=== PATIENT | female | born 1980 | race Caucasian/White ===

== ENCOUNTER 2017-06-30 11:14 | Emergency (ER) | payer OTHER ==
[2017-06-30 11:20] VITALS: TEMP 97.9
[2017-06-30] MEDS ORDERED: KETOROLAC 30 MG/1 ML SDV IM ONE (12:05)
--- NOTE | 2017-06-30 12:10 | EDPHY ---
General Narrative: CHIEF COMPLAINT: Neck pain with injury HISTORY OF PRESENT ILLNESS: Patient complains of left-sided trapezius and upper back pain. This started several days ago. She injured it while swinging on a playground set. Since then she has had recurring injuries from repetitive use motion. She has had moderate to severe pain in the left side of the trapezius and upper back. No midline tenderness. No right-sided neck pain. No headache. No fever. No cough, body aches, congestion is. No upper extremity or lower extremity sensory changes. Completely reproducible with palpation and movement. So severe it is hard for her to move her sleep. She tried Percocet from previous prescription with no improvement. No other associated complaints or modifying factors. REVIEW OF SYSTEMS: Ten systems reviewed and are negative unless otherwise noted in the HPI PCP: None currently SPECIALISTS: None PAST MEDICAL HISTORY: None SOCIAL HISTORY: Nonsmoker. Works at [employer] for [employer] FAMILY HISTORY: Noncontributory EXAMINATION General Appearance: Alert, no distress Head: normocephalic, atraumatic Eyes: Pupils equal and round, no conjunctival pallor or injection ENT, Mouth: Mucous membranes moist. Airway patent. Neck: Normal inspection, supple on the right side. There is point tenderness of the left trapezius and longitudinal muscles. No midline tenderness of the spine. No crepitus, step-off or deformity. Respiratory: No retractions or distress Cardiovascular: Regular rate. Pulses are symmetric in the radial 2+. Back: No bony tenderness. There is tenderness of the left rhomboids and longitudinal muscle. Tenderness of the left subscapularis. No midline tenderness at any level. Neurological: A&O, nonfocal, normal gait. Strength is symmetric in all 4 limbs. Skin: Warm and dry, no rash. No petechiae or purpura. Extremities: Nontender, no pedal edema Psychiatric: Mood and affect normal DIFFERENTIAL DIAGNOSES: Including but not limited to muscular strain, muscular spasm, whiplash MDM: 12:05 p.m. Acute strain and/or muscular spasm of the trapezius muscle. This is completely reproducible on examination. No midline tenderness. No meningismus. No cough or congestion. No headache. No fever. Vital signs are within normal limits. She has had no success with anti-inflammatories at home. I will add short course of pain medication and muscle relaxant. I have ordered a soft C-collar comfort only. She has instructions to return here at the emergency department if her symptoms worsen, midline neck pain, fever, neck stiffness. She has the on-call primary care physician information to contact for follow-up palpation. She is comfortable this plan and discharged in stable condition. 12:20 p.m. After discussing with the patient again, the Percocet did not help with 1st time. Thus we will change this from Percocet and Flexeril to Valium instead. Valium without any narcotics. We discussed not combine with narcotics as well. Same precautions and follow-up plan as above. - History Smoking Status: Never smoked - Objective Vital Signs: Initial Vital Signs Temperature (C) 97.9 F 06/30/17 11:16 Heart Rate 76 06/30/17 11:16 Respiratory Rate 16 06/30/17 11:16 Blood Pressure 108/74 06/30/17 11:16 O2 Sat (%) 96 06/30/17 11:16 O2 Delivery Mode Room Air Allergies/Adverse Reactions: Penicillins Allergy (Intermediate, Verified 06/30/17 11:21) "fever" throat feels tight latex Allergy (Mild, Verified 06/30/17 11:21) rash at site Home Medications: Medication Instructions Recorded Diazepam [Valium 5 MG (*)] 5 mg PO TID PRN #15 tab 06/30/17 Medications Given: Discontinued Medications Ketorolac Tromethamine (Toradol) 30 mg IM EDNOW ONE Stop: 06/30/17 12:06 Last Admin: 06/30/17 12:13 Dose: 30 mg Departure - Departure Disposition: Home, Routine, Self-Care Clinical Impression: Trapezius muscle spasm Thoracic myofascial strain Qualifiers: Encounter type: initial encounter Qualified Code(s): S29.019A - Strain of muscle and tendon of unspecified wall of thorax, initial encounter Condition: Good Instructions: Cervical Strain (ED), Muscle Strain (ED) Additional Instructions: 1. Ibuprofen 600 mg every 8 hours as needed for 7 days 2. Flexeril as prescribed as needed 3. Soft cervical collar for comfort I your discretion 4. On-call primary care physician information provided. Contact them on Saturday to establish. 4. ED precautions as discussed Referrals: NONE *PRIMARY CARE P,. [Primary Care Provider] - As per Instructions Raom Neves MD [[facility] Primary Care Provider] - As per Instructions Prescriptions: Diazepam [Valium 5 MG (*)] 5 mg PO TID PRN #15 tab PRN Reason: Spasms
[2017-06-30 12:26] VITALS: BP 120/79; PULSE 64; RESP 18; O2SAT 99
== END 2017-06-30 12:26 | disposition home or self-care (01) ==
DX: S29.012A Strain of muscle and tendon of back wall of thorax, initial encounter (principal); M62.830 Muscle spasm of back; Z91.040 Latex allergy status; X50.3XXA Overexertion from repetitive movements, initial encounter; Y92.89 Other specified places as the place of occurrence of the external cause; Y93.89 Activity, other specified
CPT/HCPCS: J1885

== ENCOUNTER 2017-07-01 15:20 | Emergency (ER) | payer OTHER ==
[2017-07-01 15:32] VITALS: RESP 16
--- NOTE | 2017-07-01 16:24 | EDPHY ---
H & P Stated Complaint: Still having muscle spasm in neck/trapezieus;seen here yesterday Time Seen by Provider: 07/01/17 16:01 HPI/ROS: CHIEF COMPLAINT: continued left upper back pain HISTORY OF PRESENT ILLNESS: 37-year-old female complaining of left-sided trapezius pain which started several days ago which initially started when she was swinging on a playground zip line like device. No direct trauma or injury. She was seen emergency department yesterday given Toradol and prescribed diazepam which made her sleepy but did not provide significant pain relief. At no point has she experience peripheral paresthesia, upper extremity weakness. No history of major or minor head or neck injury or manipulation. No chiropractic manipulation. No dizziness. No visual disturbance. No headache. No hearing loss no tinnitus. PRIMARY CARE PROVIDER: none REVIEW OF SYSTEMS: A ten point review of systems was performed and is negative with the exception of the items mentioned in the HPI PAST MEDICAL & SURGICAL HISTORY: No pertinent medical or surgical history SOCIAL HISTORY: nonsmoker. No drug use. . [id number] 3-year-old children PHYSICAL EXAM (Prior to examination, patient consented to physical exam, hands were washed and my usual and customary physical exam procedures followed) 1) GENERAL: Well-developed, well-nourished, alert and oriented. Keeping her head still, has pain to the left trapezius with range of motion of the head 2) HEAD: Normocephalic, atraumatic 3) HEENT: Pupils equal, round, reactive to light bilaterally. Sclera anicteric. Negative Lukas's Nasopharynx, oropharynx, clear, no lesions. Ears bilaterally with normal tympanic membranes. 4) NECK: Full range of motion, no meningeal signs. Tender to palpation left trapezius muscle. No crepitus. No midline C-spine pain, no step-off, no crepitus. 5) LUNGS: Clear auscultation bilaterally, no wheezes, no rhonchi, no retractions. 6) HEART: Regular rate and rhythm, no murmur, no heave, no gallop. 7) ABDOMEN: No guarding, no rebound, no focal tenderness, negative McBurney's, negative Chatman's, negative Rovsing's, negative peritoneal sign, 8) MUSCULOSKELETAL: Moving all extremities, no focal areas of tenderness, no obvious trauma. No peripheral edema or discoloration. 9) BACK: No CVA tenderness, no midline vertebral tenderness, no fluctuance, no step-off, no obvious trauma, no visual or palpable abnormality. 10) SKIN: No rash, no petechiae. 11) NEURO: Awake, alert, and oriented to person, place and time. Answers questions appropriately. There were no obvious focal neurologic abnormalities. No cerebellar dysfunction. Cranial nerves 2 through to 12 intact. Normal steady gait. Upper and lower extremities bilaterally with strength 5 / 5, reflexes 2+.. DIFFERENTIAL DIAGNOSIS: In no particular order my differential includes but is not limited to deep space infection, cervico-cranial vessel disssection, muscle strain. - Personal History LMP (Females 10-55): 8-14 Days Ago Current Tetanus Diphtheria and Acellular Pertussis (TDAP): Yes - Medical/Surgical History Other PMH: muscle spasms in neck - Social History Smoking Status: Never smoked Constitutional: Initial Vital Signs Temperature (C) 36.5 C 07/01/17 15:29 Heart Rate 90 07/01/17 15:29 Respiratory Rate 16 07/01/17 15:29 Blood Pressure 109/78 07/01/17 15:29 O2 Sat (%) 97 07/01/17 15:29 O2 Delivery Mode Room Air Allergies/Adverse Reactions: Penicillins Allergy (Intermediate, Verified 07/01/17 15:28) "fever" throat feels tight latex Allergy (Mild, Verified 07/01/17 15:28) rash at site Home Medications: Medication Instructions Recorded Diazepam [Valium 5 MG (*)] 5 mg PO TID PRN #15 tab 06/30/17 Cyclobenzaprine [Flexeril 10 MG 10 mg PO TID #15 tab 07/01/17 (RX)] Ibuprofen [Motrin (*)] 600 mg PO 07/01/17 Lidocaine 5% [Lidoderm 5% Patch 1 ea TD BID #30 patch 07/01/17 (*)] ED Images - Female Images Female Torso Head Front/Back: 1 - Tender to palpation, reproducible pain with range of motion Medical Decision Making ED Course/Re-evaluation: I think that the patient's symptoms are more than likely secondary to muscular strain. We discussed diagnostic studies. I do not think that diagnostic studies are indicated at this time. Doubt pneumothorax. Doubt PE. We discussed the indications risks benefits of trigger point injection however I do not think the benefits outweigh the risks namely possibility of pneumothorax. I think that cervico-cranial vessel dissection less than likely in this patient at this time. I do not think that imaging studies definitively indicated at this time. I discussed this with the patient and she is in agreement and feels comfortable with this treatment plan. My usual and customary cervical precautions and instructions have been provided including avoiding manipulation of the area. - Data Points Medications Given: Discontinued Medications Lidocaine (Lidoderm 5%) 1 ea TD DAILY EUSEBIA Stop: 12/28/17 16:29 Last Admin: 07/01/17 16:39 Dose: 1 ea Miscellaneous Information (Patch Removal) 1 ea TD DAILY21 EUSEBIA Stop: 12/28/17 20:59 Last Admin: 07/01/17 16:40 Dose: Not Given Departure - Departure Disposition: Home, Routine, Self-Care Clinical Impression: Trapezius muscle strain Qualifiers: Encounter type: initial encounter Laterality: left Qualified Code(s): S46.812A - Strain of other muscles, fascia and tendons at shoulder and upper arm level, left arm, initial encounter Condition: Good Instructions: Lidocaine Patch (On the skin), Cervical Strain (ED) Additional Instructions: Return to the ER immediately if you experience new or worsening neck pain, dizziness, visual disturbance, double vision, lightheadedness, facial droop, or any other symptoms that concern you. Avoid deep tissue massage and chiropractic manipulation, until symptom-free, and cleared by your regular health care provider. Referrals: Ramo Neves MD [[facility] Primary Care Provider] - As per Instructions Prescriptions: Cyclobenzaprine [Flexeril 10 MG (RX)] 10 mg PO TID #15 tab Lidocaine 5% [Lidoderm 5% Patch (*)] 1 ea TD BID #30 patch
[2017-07-01] MEDS ORDERED: LIDOCAINE 5% 1 EA PATCH TD SCH (16:30)
[2017-07-01 17:07] VITALS: BP 118/70; PULSE 81; TEMP 98.6; O2SAT 98
[2017-07-01] MEDS ORDERED: PATCH REMOVAL 1 EA PATCH TD SCH (21:00)
== END 2017-07-01 17:21 | disposition home or self-care (01) ==
DX: S46.812D Strain of other muscles, fascia and tendons at shoulder and upper arm level, left arm, subsequent encounter (principal); Z91.040 Latex allergy status; X58.XXXD Exposure to other specified factors, subsequent encounter